=== PATIENT | female | born 1970 | race Caucasian/White ===

== ENCOUNTER 2019-07-12 23:18 | Emergency (ER) | payer SELFPAY ==
[2019-07-12 23:28] VITALS: BP 183/91; PULSE 87
[2019-07-12] MEDS ORDERED: Sulfamethoxazole/Trimethoprim 800-160 MG Tab PO ONE (23:33)
[2019-07-12] MEDS ORDERED: Cephalexin 500 MG Cap PO ONE (23:34)
--- NOTE | 2019-07-12 23:41 | EDM.PDOC ---
ED HPI GENERAL MEDICAL PROBLEM - General Chief Complaint: Skin Complaint Stated Complaint: SORE ON BACK OF RIGHT LEG Time Seen by Provider: 07/12/19 23:26 - History of Present Illness INITIAL COMMENTS - FREE TEXT/NARRATIVE: HISTORY AND PHYSICAL: History of present illness: The patient is a 48-year-old female who is unsure of her last tetanus shot and follows at [facility] with Dr. Sotelo and presents with an almost 5 day history of itching irritation and a rash/lesion behind her right knee. She says that he noticed first some itching and irritation and then noticed a reddened area which seems to get bigger and it is burning. She has been cleaning it with hydrogen peroxide and placing ointment on it. She has not taken any oral Benadryl and she has not seen her provider for this. She has no other rashes or lesions elsewhere in her body and she has no weakness numbness or tingling in her right leg and no knee pain fevers chills or other systemic issues Review of systems: As per history of present illness and below otherwise all systems reviewed and negative. Past medical history: As per history of present illness and as reviewed below otherwise noncontributory. Surgical history: As per history of present illness and as reviewed below otherwise noncontributory. Social history: No reported history of drug or alcohol abuse. Family history: As per history of present illness and as reviewed below otherwise noncontributory. Physical exam: General: Well-developed well-nourished thin female who is nontoxic and vital signs are noted by me HEENT: Atraumatic, normocephalic, negative for conjunctival pallor or scleral icterus, mucous membranes moist, throat clear, neck supple, nontender, trachea midline. Lungs: Clear to auscultation, breath sounds equal bilaterally, chest nontender. Heart: S1S2, regular in rhythm no overt murmurs Abdomen: Soft, nondistended, nontender. NABS Pelvis: Deferred Genitourinary: Deferred. Rectal: Deferred. Extremities: Atraumatic, full range of motion of all extremities including the right leg. There is no pedal edema no leg asymmetry and no cords. In the popliteal fossa of the right leg there is an 11 x 8 area of excoriation and honey crusting seen which is very sensitive and weeping some clear fluid. There are no vesicles or blisters and there is some surrounding erythema extending minimally superiorly and inferiorly down to the mid leg. The patient has no fullness joint effusion or tenderness to the knee or the calf. The area is very well demarcated. Neurovascular unremarkable. Neuro: Awake, alert, oriented. Cranial nerves II through XII unremarkable. Cerebellum unremarkable. Motor and sensory unremarkable throughout. Exam nonfocal. Diagnostics: [] Therapeutics: Bactrim and Keflex Impression: Cellulitis of right leg, rule out impetigo Definitive disposition and diagnosis as appropriate pending reevaluation and review of above. Right Posterior Knee Pain Score (Numeric/FACES): 7 - Related Data Allergies Allergy/AdvReac Type Severity Reaction Status Date / Time No Known Allergies Allergy Verified 07/12/19 23:25 Home Meds: Home Meds . 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 ED EXAM, SKIN/RASH Exam: See Below (See dictation) Course - Vital Signs Last Recorded V/S: Last Vital Signs Temp 36.0 C 07/12/19 23:25 Pulse 87 07/12/19 23:25 Resp 18 07/12/19 23:25 BP 183/91 H 07/12/19 23:25 Pulse Ox 98 07/12/19 23:25 - Orders/Labs/Meds Meds: Medications Discontinued Medications Generic Name Dose Route Start Last Admin Trade Name Freq PRN Reason Stop Dose Admin Cephalexin 500 mg 07/12/19 23:34 Keflex PO 07/12/19 23:35 ONETIME ONE Trimethoprim/Sulfamethoxazole 1 tab 07/12/19 23:33 Septra Ds PO 07/12/19 23:34 ONETIME ONE Departure - Departure Time of Disposition: 23:40 Disposition: Home, Self-Care 01 Condition: Good Clinical Impression: Cellulitis Qualifiers: Site of cellulitis: extremity Site of cellulitis of extremity: lower extremity Laterality: right Qualified Code(s): L03.115 - Cellulitis of right lower limb - Discharge Information Referrals: Sarath Sotelo MD [Primary Care Provider] - Additional Instructions: The following information is given to patients seen in the emergency department who are being discharged to home. This information is to outline your options for follow-up care. We provide all patients seen in our emergency department with a follow-up referral. The need for follow-up, as well as the timing and circumstances, are variable depending upon the specifics of your emergency department visit. If you don't have a primary care physician on staff, we will provide you with a referral. We always advise you to contact your personal physician following an emergency department visit to inform them of the circumstance of the visit and for follow-up with them and/or the need for any referrals to a consulting specialist. The emergency department will also refer you to a specialist when appropriate. This referral assures that you have the opportunity for followup care with a specialist. All of these measure are taken in an effort to provide you with optimal care, which includes your followup. Under all circumstances we always encourage you to contact your private physician who remains a resource for coordinating your care. When calling for followup care, please make the office aware that this follow-up is from your recent emergency room visit. If for any reason you are refused follow-up, please contact the [facility] emergency department at and ask to speak to the emergency department charge nurse. [address] [place] [address] Please only cleanse the area with mild soap and water and pat dry. Fill the prescription you have been given for Bactroban and apply a thin amount to the inner area that has been marked where the crusting is. Take antibiotics as prescribed and use [id number] medications and Benadryl as you choose. Please schedule a follow-up appointment with Dr. Sotelo or one of his associates in the clinic for reevaluation and further care and return to ER as needed as discussed
[2019-07-12] MEDS ORDERED: Diphtheria,Pertussis(Acell),Tetanus Vaccine 0.5 ML Syringe IM ONE (23:44)
== END 2019-07-13 00:02 | disposition home or self-care (01) ==
LOC: MW.ED 23:18
DX: L03.115 Cellulitis of right lower limb (principal); Z23 Encounter for immunization; F17.210 Nicotine dependence, cigarettes, uncomplicated
CPT/HCPCS: 90471; 90715; 99282; A9270; 99283

== ENCOUNTER 2021-10-25 18:24 | Inpatient (IN) | payer SELFPAY ==
[2021-10-25] MEDS ORDERED: Ondansetron 4 MG/2 ML SDV IVPUSH ONE (19:21)
[2021-10-25] MEDS ORDERED: Morphine 4 MG/ML VIAL IVPUSH ONE ×2 (19:21→22:27)
[2021-10-25] MEDS ORDERED: methylPREDNISolone Sodium Succinate 125 MG/2 ML SDV IVPUSH ONE (19:23)
[2021-10-25 20:09] LABS: BLOOD UREA NITROGEN,BUN 10 mg/dL (7.0-18.0); CHLORIDE,CL 101 mmol/L (98-107); GLUCOSE RANDOM 124 mg/dL (74-106); POTASSIUM,K 3.5 mmol/L (3.5-5.1); SODIUM,NA 138 mmol/L (136-145)
[2021-10-25 20:26] LABS: CORONAVIRUS COVID-19 NAA NEGATIVE (NEGATIVE); INFLUENZA A NAA NEGATIVE (NEGATIVE); INFLUENZA B NAA NEGATIVE (NEGATIVE)
[2021-10-25] MEDS ORDERED: Piperacillin/Tazobactam 3.375 GM in Sodium Chloride 0.9% 50 ML IV ONE (20:28)
[2021-10-25] MEDS ORDERED: metroNIDAZOLE 250 MG Tab PO ONE (21:35)
[2021-10-25] MEDS ORDERED: Iopamidol 755 MG/ML 500 ML Multipack Bottle IVPUSH STA (21:38)
[2021-10-25] MEDS ORDERED: VANCOmycin 1.5 GM/300 ML 300 ML IV ONE (22:30)
[2021-10-25] MEDS ORDERED: Morphine 2 MG/ML SYRINGE IVPUSH PRN (22:40)
[2021-10-25] MEDS ORDERED: Ondansetron 4 MG/2 ML SDV IVPUSH PRN (22:40)
[2021-10-25] MEDS ORDERED: Albuterol/Ipratropium 3.0-0.5 MG/3 ML Neb Soln NEB PRN (22:40)
[2021-10-25] MEDS ORDERED: Lactated Ringers 1,000 ML IV SCH (22:45)
[2021-10-26] MEDS: Piperacillin/Tazobactam 3.375 GM in Sodium Chloride 0.9% 50 ML IV SCH ×3 (05:33→21:24)
[2021-10-26] MEDS: Morphine 2 MG/ML SYRINGE IVPUSH PRN ×4 (05:52→21:22)
[2021-10-26 06:42] LABS: BLOOD UREA NITROGEN,BUN 11 mg/dL (7.0-18.0); CARBON DIOXIDE,CO2 22.4 mmol/L (21.0-32.0); CHLORIDE,CL 101 mmol/L (98-107); GLUCOSE RANDOM 141 mg/dL (74-106); SODIUM,NA 136 mmol/L (136-145)
[2021-10-26] MEDS ORDERED: Heparin Sodium 5,000 Units/ML Vial SUBCUT SCH (09:00)
[2021-10-26] MEDS: Azithromycin 500 MG in Sodium Chloride 0.9% 250 ML IV SCH (11:47)
[2021-10-26] MEDS: Enoxaparin 40 MG/0.4 ML Syringe SUBCUT SCH (16:21)
[2021-10-27] MEDS: Acetaminophen 325 MG Tab PO PRN ×4 (03:31→21:57)
[2021-10-27] MEDS: Piperacillin/Tazobactam 3.375 GM in Sodium Chloride 0.9% 50 ML IV SCH ×4 (05:58→23:44)
[2021-10-27 06:28] LABS: BLOOD UREA NITROGEN,BUN 10 mg/dL (7.0-18.0); CARBON DIOXIDE,CO2 26.1 mmol/L (21.0-32.0); CHLORIDE,CL 103 mmol/L (98-107); GLUCOSE RANDOM 117 mg/dL (74-106); POTASSIUM,K 3.5 mmol/L (3.5-5.1); SODIUM,NA 139 mmol/L (136-145)
[2021-10-27] MEDS: Azithromycin 500 MG in Sodium Chloride 0.9% 250 ML IV SCH (08:51)
[2021-10-27] MEDS: Enoxaparin 40 MG/0.4 ML Syringe SUBCUT SCH (16:26)
[2021-10-28] MEDS: Piperacillin/Tazobactam 3.375 GM in Sodium Chloride 0.9% 50 ML IV SCH ×4 (06:14→22:46)
[2021-10-28 06:31] LABS: BLOOD UREA NITROGEN,BUN 7 mg/dL (7.0-18.0); CHLORIDE,CL 107 mmol/L (98-107); GLUCOSE RANDOM 96 mg/dL (74-106); POTASSIUM,K 3.4 mmol/L (3.5-5.1); SODIUM,NA 141 mmol/L (136-145)
[2021-10-28] MEDS: Acetaminophen 325 MG Tab PO PRN ×4 (06:34→23:41)
[2021-10-28] MEDS ORDERED: Potassium Chloride 20 MEQ Tab.ER PO ONE (08:16)
[2021-10-28] MEDS: Azithromycin 500 MG in Sodium Chloride 0.9% 250 ML IV SCH (08:35)
[2021-10-28] MEDS: Enoxaparin 40 MG/0.4 ML Syringe SUBCUT SCH (17:23)
[2021-10-29] MEDS: Piperacillin/Tazobactam 3.375 GM in Sodium Chloride 0.9% 50 ML IV SCH ×2 (04:19→10:54)
[2021-10-29 05:52] LABS: BLOOD UREA NITROGEN,BUN 5 mg/dL (7.0-18.0); CARBON DIOXIDE,CO2 26.2 mmol/L (21.0-32.0); CHLORIDE,CL 105 mmol/L (98-107); GLUCOSE RANDOM 90 mg/dL (74-106); POTASSIUM,K 3.5 mmol/L (3.5-5.1); SODIUM,NA 142 mmol/L (136-145)
[2021-10-29] MEDS: Azithromycin 500 MG in Sodium Chloride 0.9% 250 ML IV SCH (08:10)
[2021-10-29 08:19] VITALS: BP 133/71; PULSE 77
== END 2021-10-29 13:25 | disposition home or self-care (01) | DRG 183 ==
LOC: MW.ED 18:24 → MW.MS 22:29
PROVIDERS: ADMIT Student in an Organized Health Care Education/Training Program; ATTEND Student in an Organized Health Care Education/Training Program
DX: S22.41XA Multiple fractures of ribs, right side, initial encounter for closed fracture (principal); J18.9 Pneumonia, unspecified organism; F17.210 Nicotine dependence, cigarettes, uncomplicated; A59.9 Trichomoniasis, unspecified; W00.0XXA Fall on same level due to ice and snow, initial encounter; E05.90 Thyrotoxicosis, unspecified without thyrotoxic crisis or storm; Z98.51 Tubal ligation status; Z20.822 Contact with and (suspected) exposure to COVID-19
CPT/HCPCS: 0240U; 36415; 71045; 71045-26; 71275; 71275-26; 80048; 80053; 81001; 82607; 83605; 84484; 85025; 85379; 87040; 87086; 93005; 96365; 96375; 96376; 99285-25; A9270-GY; J0456; J1644; J1650; J2270; J2405; J2543; J2930; J3370; J7050; J7120; Q9967